=== PATIENT | male | born 1965 | race Two or more races ===

== ENCOUNTER 2021-11-04 11:46 | Emergency (ER) | payer MEDICAID ==
[~2021-11-04] VITALS: Ht 167.6 cm; Wt 63.6 kg
[2021-11-04] MEDS ORDERED: DiphenhydrAMINE HCL 50 MG/ML VIAL IVP ONE (12:45)
[2021-11-04] MEDS ORDERED: PredniSONE 20 MG TABLET PO ONE (12:45)
[2021-11-04] MEDS ORDERED: FAMOTIDINE 40 MG in SODIUM CHLORIDE 0.9% 100 ML IV ONE (12:45)
[2021-11-04] MEDS ORDERED: AmLODIPine BESYLATE 5 MG TABLET PO ONE (15:00)
[2021-11-04 16:15] VITALS: BP 170/128
[2021-11-04] MEDS ORDERED: PRED-554 PO (16:36)
[2021-11-04] MEDS ORDERED: HYDR-4527 PO (16:37)
== END 2021-11-04 16:55 | disposition home or self-care (01) ==
LOC: EMS 11:46
DX: T78.1XXA Other adverse food reactions, not elsewhere classified, initial encounter (principal); R23.8 Other skin changes; X58.XXXA Exposure to other specified factors, initial encounter; Z91.013 Allergy to seafood
CPT/HCPCS: 96365; 96375; 99284; J1200; J3490; J7050; J7512; 96374; 99283

== ENCOUNTER 2022-05-13 23:09 | Emergency (ER) | payer MEDICAID, OTHER ==
[~2022-05-13] VITALS: Ht 167.6 cm; Wt 70.0 kg
[~2022-05-13 23:09] MED LIST: HYDR-4527 PO; PRED-554 PO
[2022-05-14] MEDS ORDERED: DIPH25CA85 PO (00:56)
[2022-05-14] MEDS ORDERED: PRED-554 PO (00:56)
[2022-05-14 01:00] VITALS: BP 174/98
[2022-05-14] MEDS ORDERED: DiphenhydrAMINE HCL 50 MG CAPSULE PO ONE (01:00)
[2022-05-14] MEDS ORDERED: PredniSONE 20 MG TABLET PO ONE (01:00)
== END 2022-05-14 01:30 | disposition home or self-care (01) ==
LOC: EMS 23:12
DX: L25.9 Unspecified contact dermatitis, unspecified cause (principal); I10 Essential (primary) hypertension; F10.20 Alcohol dependence, uncomplicated; F17.210 Nicotine dependence, cigarettes, uncomplicated
CPT/HCPCS: 99283; J7512